=== PATIENT | male | born 1950 | race Caucasian/White ===

== ENCOUNTER 2023-10-20 14:42 | Day surgery (SDC) | payer MEDICARE, OTHER ==
[~2023-10-20 14:42] MED LIST: SODIUM CHLORIDE 0.9% 1,000 ML IV SCH
[2023-10-20] MEDS: IV FLUID CONTINUATION 1,000 ML IV ONE (15:27)
[2023-10-20 15:43] VITALS: BP 155/110; PULSE 68; RESP 16; TEMP 97.1
[2023-10-20 15:50] LABS: Glucose,Whole Blood 107 mg/dL (70-110)
[2023-10-20] MEDS: IOPAMIDOL-370 100ML BTL INJ ONE (18:20)
--- NOTE | 2023-10-20 18:21 | P.EPPROC ---
- EP Procedure Note Electrophysiology Procedure Note: Diagnosis Dual-chamber ICD generator at [facility], [facility]/[employer]. In 2014 I had implanted a new atrial lead History of coronary disease status post coronary artery bypass grafting Ischemic cardiomyopathy Congestive heart failure class II History of sustained ventricular tachycardia, currently on sotalol Chronic LV systolic dysfunction with 100% RV pacing Procedure Cinefluoroscopy of the leads reveals a single coil ICD lead implanted in the RV apex An abandoned atrial lead and implantation of his second atrial lead in the right atrial appendage Atrial pacing threshold 0.8 V at 0.5 ms, P waves 2.4 mV and pacing impedance 480 ohms RV pacing threshold 1 V at 0.5 ms, R waves 12 mV impedance impedance 400 ohms High-voltage impedance 70 ohms Left upper extremity venogram reveals patent left axillary and subclavian venous system Less than 15 mL IV dye injected in the left arm Plan Schedule upgrade to a biventricular ICD for management of severe cardiomyopathy, class II CHF and 100% RV pacing/pacemaker dependency
== END 2023-10-20 18:46 | disposition home or self-care (01) ==
LOC: CATHEP 14:42
PROVIDERS: ATTEND Internal Medicine Clinical Cardiac Electrophysiology
DX: Z45.02 Encounter for adjustment and management of automatic implantable cardiac defibrillator (principal); I87.1 Compression of vein; I50.22 Chronic systolic (congestive) heart failure; I25.5 Ischemic cardiomyopathy; I25.10 Atherosclerotic heart disease of native coronary artery without angina pectoris; Z95.1 Presence of aortocoronary bypass graft; Z87.891 Personal history of nicotine dependence; Z79.82 Long term (current) use of aspirin; Z79.84 Long term (current) use of oral hypoglycemic drugs; Z79.01 Long term (current) use of anticoagulants; Z79.899 Other long term (current) drug therapy
CPT/HCPCS: 33249; 36005; 75820; 76000; Q9967

== ENCOUNTER 2023-12-08 11:02 | Day surgery (SDC) | payer MEDICARE, OTHER ==
[2023-12-01 16:08] VITALS: BMI 26.4
[~2023-12-08 11:02] MED LIST changes: -SODIUM CHLORIDE 0.9% 1,000 ML IV SCH; +ceFAZolin 1 GM in SODIUM CHLORIDE 0.9% IRRIG BTL 250 ML IRRIGATION PRN
[2023-12-08 11:39] LABS: Glucose,Whole Blood 111 mg/dL (70-110)
[2023-12-08] MEDS: IV FLUID CONTINUATION 1,000 ML IV ONE (11:54)
[2023-12-08] MEDS: SODIUM CHLORIDE 0.9% 1,000 ML IV SCH ×2 (11:54→22:02)
[2023-12-08] MEDS ORDERED: diphenhydrAMINE 50 MG/ML 1 ML VIAL ONE (14:00)
[2023-12-08] MEDS ORDERED: PHENYLEPHRINE 10 MG/ML VIAL ONE (14:00)
[2023-12-08] MEDS ORDERED: LIDOCAINE 1% INJ 10MG/ML (20 ML MDV) ONE (14:00)
[2023-12-08] MEDS ORDERED: ePHEDrine 50 MG/ML 1 ML VIAL ONE (14:00)
[2023-12-08] MEDS ORDERED: MIDAZOLAM 2 MG/2 ML VIAL ONE (14:00)
[2023-12-08] MEDS ORDERED: WATER FOR INJECTION, STERILE 10 ML VIAL IV ONE (14:00)
[2023-12-08] MEDS ORDERED: GLYCOPYRROLATE 0.2 MG/ML 2 ML VIAL ONE (14:00)
[2023-12-08] MEDS ORDERED: KETAMINE HCL IN 0.9 % NACL 50 MG/5 ML SYRINGE ONE (14:00)
[2023-12-08] MEDS ORDERED: PROPOFOL 10 MG/ML 20 ML VIAL IV ONE (14:00)
[2023-12-08] MEDS ORDERED: ONDANSETRON 4 MG/2 ML VIAL ONE (14:00)
[2023-12-08] MEDS ORDERED: fentaNYL (PF) 50 MCG/ML 2 ML AMP ONE (14:00)
[2023-12-08] MEDS: VANCOMYCIN 1,000 MG in SODIUM CHLORIDE 0.9% 250 ML IVPB STA (14:30)
[2023-12-08] MEDS: ROPIVACAINE 5 MG/ML 30 ML VIAL MISCELLANE ONE (14:43)
[2023-12-08] MEDS: LIDOCAINE 1% INJ 10MG/ML (20 ML MDV) SQ ONE (14:43)
[2023-12-08] MEDS: IOPAMIDOL-370 100ML BTL INJ ONE ×2 (15:26)
[2023-12-08] MEDS ORDERED: ACETAMINOPHEN TAB 325 MG TAB PO PRN (17:22)
--- NOTE | 2023-12-08 17:22 | P.EPPROC ---
- EP Procedure Note Electrophysiology Procedure Note: Diagnosis Congestive heart failure with severe cardiomyopathy class II Dual-chamber ICD with 100 send RV pacing Admitted for upgrade to a biventricular ICD Final diagnosis Extremely tortuous lateral coronary vein with a hairpin bends Unable to cannulate in a stable manner to allow for passage of lead and wire/unable to place LV lead Attempt at left bundle pacing with good paced electrograms on the septum with the diagnostic catheter but the delivery sheaths were too short Patient's RA and RV are quite enlarged and the delivery sheath for the lead was not long enough to reach the septum Left bundle pacing lead could not be implanted successfully even though RV septal pacing revealed excellent site for implantation Details Patient is brought to the EP lab in a fasting state. Written informed consent was obtained prior to the procedure. IV antibiotics administered. The dual- chamber ICD was programmed to DOO mode since he has complete heart block An incision was made directly over the previous surgical site and carried down to level of the generator. The generator was explanted. Partial capsulectomy was performed. Venous access was obtained. There was difficulty passing the wires at the innominate SVC junction on account of tortuosity even though the vein is quite patent. This was performed successfully multiple times using the advantage wire as a guide First LV lead placement was attempted. The coronary sinus was accessed. Coronary sinus venogram revealed that the patient had a diminutive middle cardiac vein, posterior lateral vein and a large lateral vein However the large lateral vein had a hairpin band. Even though this was cannulated briefly, stability could not be maintained and the lead could not be placed within this vein Left bundle pacing was then attempted The left bundle nondeflectable sheath was placed over the coronary sinus catheter. The coronary sinus catheter was placed in the RVOT and then brought down to the septum. Excellent PVCs with terminal notching and also W-shaped pattern was obtained. However the fixed sheath was not long enough to allow for delivery of the left bundle lead The deflectable sheath was also used which was 43 cm in length but this proved to be too short to reach the septum As a result despite accurate mapping for the site of entry of the left bundle lead, the sheath was not long enough to provide stability for implantation Left bundle lead was not implanted Both leads were removed sheaths were removed and oversewn to prevent backbleeding The pocket was again with antibiotic solution the old generator was explanted new biventricular ICD was implanted and the LV port was plugged for future implantation of an epicardial lead thoracoscopically Antibiotic pouch was placed The wound was closed in 3 layers and dressed per protocol transfer tech
[2023-12-08 17:52] LABS: Glucose,Whole Blood 99 mg/dL (70-110)
[2023-12-08] MEDS ORDERED: NITROGLYCERIN SL TABS 0.4 MG TAB SUBLINGUAL PRN (18:56)
[2023-12-08] MEDS: ACETAMINOPHEN IV (For NPO) 1,000 MG in EMPTY BAG 1 BAG IVPB ONE (20:27)
[2023-12-08] MEDS: METOPROLOL TARTRATE 50 MG TAB PO SCH (20:30)
[2023-12-08] MEDS: BETHANECHOL 10 MG TAB PO SCH (20:30)
[2023-12-08] MEDS: SOTALOL 120 MG TAB PO SCH (20:30)
[2023-12-08] MEDS: METOCLOPRAMIDE 10 MG TAB PO SCH (20:30)
[2023-12-08 21:14] VITALS: RESP 16
[2023-12-09] MEDS: PANTOPRAZOLE 40 MG TABLET PO SCH (06:06)
--- NOTE | 2023-12-09 07:22 | XR ---
EXAMINATION TYPE: XR chest 2V DATE OF EXAM: 12/09/2023 COMPARISON: 05/02/2014 INDICATION: Lead placement check. Pacemaker TECHNIQUE: Frontal and lateral views of the chest are obtained. FINDINGS: The heart size is normal. The pulmonary vasculature is normal. Mild platelike atelectasis at the right costophrenic angle.. Pacemaker overlies left chest, leads ar e typical in orientation. No pneumothorax is evident. Sternotomy wires are midline. IMPRESSION: 1. Right basilar platelike atelectasis. 2. Pacemaker leads and typical orientation. No pneumothorax evident [facility], , 12/09/2023 7:20 AM
[2023-12-09] MEDS: FUROSEMIDE 40 MG TAB PO STA (08:27)
[2023-12-09] MEDS: ASPIRIN 81 MG PO SCH (08:27)
[2023-12-09] MEDS: lisinopriL 5 MG TAB PO SCH (08:29)
[2023-12-09] MEDS: EZETIMIBE 10 MG TAB PO SCH (08:30)
[2023-12-09] MEDS: DAPAGLIFLOZIN PROPANEDIOL 5 MG TABLET PO SCH (08:30)
[2023-12-09] MEDS: SPIRONOLACTONE 25 MG TAB PO SCH (08:30)
[2023-12-09] MEDS: RIVAROXABAN 20 MG TAB PO SCH (08:30)
[2023-12-09] MEDS: ATORVASTATIN 20 MG TAB PO SCH (08:31)
[2023-12-09 08:47] VITALS: BP 100/55; TEMP 97.7
[2023-12-09] MEDS: FORMOTEROL FUMARATE 20 MCG/2 ML NEBU INHALATION SCH (08:49)
[2023-12-09 09:05] VITALS: PULSE 76
--- NOTE | 2023-12-09 10:12 | P.EPPROC ---
- EP Procedure Note Electrophysiology Procedure Note: Patient is doing well. No chest discomfort minimal discomfort in the ICD site Lungs are clear no rhonchi no crackles He does have a mild cough Heart sounds are normal Breath sounds are mostly clear He denies any shortness of breath or orthopnea Impression Ischemic cardiomyopathy congestive heart failure class II-III with 100% RV pacing Pacemaker dependent with a dual-chamber ICD which is at [facility] A biventricular ICD upgrade was performed The new generator biventricular ICD was implanted However both LV lead placement in the lateral vein was not successful on account of extreme tortuosity and hairpin bend While this vessel was briefly cannulated, stability was an issue. Multiple sheaths and telescoping sheaths were attempted Left bundle pacing was attempted but his right atrium was quite enlarged and even though the lead was positioned and an excellent location on the septum, no stability could be achieved since the sheath was short. Multiple sheaths were attempted Plan Discharge home today Incentive spirometry Continue current medications Will schedule an appointment with Dr. Zhou Haney for epicardial lead placement
[2023-12-10] MEDS ORDERED: FUROSEMIDE 20 MG TAB PO SCH (09:00)
== END 2023-12-09 11:14 | disposition home or self-care (01) ==
LOC: CATHEP 11:02 → 6NMEDSUR 17:00 → CATHEP 12-09 11:14
PROVIDERS: ATTEND Internal Medicine Clinical Cardiac Electrophysiology
DX: I50.9 Heart failure, unspecified
CPT/HCPCS: 33249; 71046; 93005; 94640

== ENCOUNTER → 2023-12-09 | Outpatient (CLI) | payer MEDICARE, OTHER ==
--- NOTE | 2024-01-04 07:41 | XR ---
EXAMINATION TYPE: XR thoracic spine 2V DATE OF EXAM: 12/09/2023 11:38 AM CLINICAL INDICATION: Male, 73 years old with history of M54.6 PAIN IN THORACIC SPINE; [facility] COMPARISON: None TECHNIQUE: XR thoracic spine 2V views of the spine in Frontal and lateral projections. FINDINGS: No evidence of acute fracture. There is scattered multilevel disk space narrowing without loss of ve rtebral body height. There is normal alignment of the thoracic vertebral bodies. Scattered osteophyte formation along the anterior and lateral aspects of the vertebral bodies. Neural foramen are patent given limitations of this exam. Spinal canal appears patent. Sternotomy wires are present with surgic al clips over the mediastinum. Cardiac conduction leads are present. IMPRESSION: 1. No acute osseous pathology. 2. Moderate multilevel degeneration changes of the spine. [facility], , 01/04/2024 7:38 AM
== END | disposition home or self-care (01) ==
LOC: RADXRMAIN 11:18
PROVIDERS: ATTEND Nurse Practitioner Family
DX: M47.814 Spondylosis without myelopathy or radiculopathy, thoracic region (principal)
CPT/HCPCS: 72070

== ENCOUNTER → 2024-01-20 | Outpatient (CLI) | payer MEDICARE, OTHER ==
--- NOTE | 2024-01-20 14:43 | XR ---
EXAMINATION TYPE: XR chest 2V DATE OF EXAM: 01/20/2024 COMPARISON: 12/09/2023 HISTORY: 73-year-old male Z01.818 PRE SURGICAL XRAY OF THE CHEST for pacemaker revision TECHNIQUE: Frontal and lateral views FINDINGS: Heart mildly enlarged. Mild hyperinflation. Left anterior chest wall ICD generator with right atrial and one right ventricular lead. Median sternotomy wires and post-CABG clips. No consolidation or pleu ral effusion. IMPRESSION: 1. Mild cardiomegaly and COPD. 2. Left anterior chest wall AICD generator. 2 right atrial and one right ventricular lead. [facility], , 01/20/2024 2:41 PM
[2024-01-20 15:13] LABS: Basophils # (A) 0.1 k/uL (0-0.2); Basophils % (A) 1 %; Eosinophils # (A) 0.1 k/uL (0-0.7); Eosinophils % (A) 2 %; HCT 43.2 % (39.0-53.0); Hypochromasia Moderate; Lymphocytes # (A) 2.1 k/uL (1.0-4.8); Lymphocytes % (A) 27 %; MCH 33.5 pg (25.0-35.0); MCHC 32.5 g/dL (31.0-37.0); MCV 103.2 fL (80.0-100.0); Macrocytosis Slight; Mean Platelet Volume 9.3; Monocytes # (A) 0.5 k/uL (0-1.0); Monocytes % (A) 7 %; Neutrophils # (A) 4.7 k/uL (1.3-7.7); Neutrophils % (A) 62 %; RBC 4.19 m/uL (4.30-5.90); RDW 13.1 % (11.5-15.5); WBC 7.7 k/uL (3.8-10.6)
[2024-01-20 15:17] LABS: INR 1.6 (<1.2); Partial Thromboplastin Time 36.4 sec (22.0-30.0); Prothrombin Time 16.1 sec (10.0-12.5)
[2024-01-20 15:23] LABS: Platelet Count 154 k/uL (150-450)
[2024-01-20 20:37] LABS: Appearance,Urine Clear (Clear); Bilirubin,Urine Negative (Negative); Blood,Urine Negative (Negative); Color,Urine Yellow (Yellow); Ketones,Urine Negative (Negative); Nitrite,Urine Negative (Negative); Specific Gravity,Urine 1.009 (1.001-1.030)
[2024-01-21 00:21] LABS: Blood Urea Nitrogen 9.3 mg/dL (9.0-27.0); Carbon Dioxide 19.1 mmol/L (21.6-31.8); Chloride 104 mmol/L (96-109); Glucose 89 mg/dL (70-110); Potassium 4.5 mmol/L (3.5-5.5); Sodium 137 mmol/L (135-145)
== END | disposition home or self-care (01) ==
LOC: LABPAT 13:26
PROVIDERS: ATTEND Thoracic Surgery (Cardiothoracic Vascular Surgery)
DX: Z01.818 Encounter for other preprocedural examination (principal); I51.7 Cardiomegaly; I50.22 Chronic systolic (congestive) heart failure; J44.9 Chronic obstructive pulmonary disease, unspecified; Z95.810 Presence of automatic (implantable) cardiac defibrillator
CPT/HCPCS: 36415; 71046; 80051; 81003; 82565; 82947; 84520; 85025; 85610; 85730; 86850; 86900; 86901; 87077; 87086; 87186; 93005

== ENCOUNTER 2024-01-28 05:34 | Inpatient (IN) | payer MEDICARE, OTHER ==
[2024-01-28] MEDS ORDERED: LIDOCAINE 1% (10MG/ML) FOR IV START INTRADERMA PRN (05:47)
[2024-01-28] MEDS: IV FLUID CONTINUATION 1,000 ML IV ONE ×4 (06:13→07:24)
[2024-01-28 06:44] LABS: Glucose,Whole Blood 111 mg/dL (70-110)
[2024-01-28] MEDS: ONDANSETRON 4 MG/2 ML VIAL IVP ONE (06:53)
[2024-01-28] MEDS: DEXAMETHASONE SOD PHOSPHATE 4 MG/ML 1 ML VIAL IV ONE (06:53)
[2024-01-28] MEDS: LACTATED RINGERS 1,000 ML IV SCH (06:54)
[2024-01-28] MEDS: MIDAZOLAM 2 MG/2 ML VIAL IV ONE (07:22)
[2024-01-28] MEDS ORDERED: LIDOCAINE 1% INJ 10MG/ML (20 ML MDV) ONE (07:35)
[2024-01-28] MEDS ORDERED: fentaNYL (PF) 50 MCG/ML 2 ML AMP ONE (07:35)
[2024-01-28] MEDS ORDERED: ROCURONIUM 10 MG/ML (5 ML VIAL) IV ONE (07:35)
[2024-01-28] MEDS ORDERED: PHENYLEPHRINE 10 MG/ML VIAL ONE (07:35)
[2024-01-28] MEDS ORDERED: GLYCOPYRROLATE 0.2 MG/ML 2 ML VIAL ONE (07:35)
[2024-01-28] MEDS ORDERED: PROPOFOL 10 MG/ML 20 ML VIAL IV ONE (07:35)
[2024-01-28] MEDS ORDERED: NEOSTIGMINE 1 MG/ML 10 ML VIAL ONE (07:35)
[2024-01-28] MEDS ORDERED: SUCCINYLCHOLINE CHLORIDE 200 MG/10 ML VIAL IV ONE (07:35)
[2024-01-28] MEDS ORDERED: MIDAZOLAM 2 MG/2 ML VIAL ONE (07:35)
[2024-01-28] MEDS: LACTATED RINGERS 1,000 ML IV ONE (09:03)
[2024-01-28] MEDS: HYDROmorphone 0.5 MG/0.5 ML SYRINGE IVP PRN (10:06)
--- NOTE | 2024-01-28 10:27 | XR ---
EXAMINATION TYPE: XR chest 1V portable DATE OF EXAM: 01/28/2024 10:22 AM COMPARISON: 01/20/2024 CLINICAL INDICATION: Male, 73 years old with history of post LV lead placement, TECHNIQUE: XR chest 1V portable view(s) obtained. FINDINGS: The heart size is mildly prominent. The pulmonary vasculature is normal. Lung mccarthy are clear. Sternotomy wires are in the midline. Pacemaker overlies left chest. Pacemaker lead is in place. No pneumothorax identified. IMPRESSION: 1. No acute pulmonary process. 2. Mild cardiomegaly. [facility], , 01/28/2024 10:24 AM
--- NOTE | 2024-01-28 10:42 | P.OP ---
Date of Procedure: 01/28/24 Preoperative Diagnosis: 73-year-old male with low ejection fraction and wide QRS has had attempts at left ventricular lead placement that failed recently with upgrade of his pacemaker to ICD. He was referred for left ventricular lead placement. Postoperative Diagnosis: Cardiomyopathy Procedure(s) Performed: Left thoracoscopic placement of epicardial bipolar left ventricular pacemaker lead with upgrade of ICD to BiV Implants: Bipolar epicardial pacemaker lead [employer] reference #[id number] serial #[id number] Anesthesia: GETA Surgeon: Zhou Haney Estimated Blood Loss (ml): 25 Pathology: none sent Condition: stable Disposition: PACU Indications for Procedure: 73-year-old male with cardiomyopathy and widened QRS failed percutaneous left ventricular lead placement and therefore sent for epicardial LV lead placement Operative Findings: Intrapleural adhesions were minimal. Intrapericardial adhesions were significant. LV lead sensing was 5.2 mV impedance was 680 ohms and threshold was 0.75 V at 0.5 ms. Description of Procedure: Patient was brought to the operating room and placed supine on the table. General anesthesia was induced. Double-lumen endotracheal tube was placed and positioned with fiberoptic bronchoscopy and secured. Patient was turned in the right lateral decubitus position. Defibrillatory pads were placed. The left chest was sterilely prepped and draped. Initial incision was made in the sixth interspace in the midaxillary line carried down through skin and subcutaneous tissue muscle layers to the pleura. The pleural space was opened and video thoracoscope inserted into the pleural space. The pleural space was free but lung compliance was poor. A second thoracoscopic port incision was performed at the eighth interspace in the posterior axillary line. Upon opening the space we inserted a ring forceps and used it to try to compress along and gain visualization of the posterior pericardium. Once we had successfully accomplished this, fat pad just posterior to the phrenic nerve was grasped and retracted superiorly. This exposed the pericardium with underlying myocardium evident. Scissors was used to sarah the pericardium and then careful blunt dissection of the intrapericardial adhesions was performed with the scissors and with the peanut. The incision was opened widely enough to allow access for the ventricular lead. [email or web address] bipolar epicardial lead was inserted through the eighth interspace incision and screwed in under direct visualization. Lead was then tested and noted to be functioning well. The tunneler was attached to the end of the lead and it was tunneled anteriorly to the sixth interspace and then through the intercostal space into the subcu space. Counterincision was made over this. The lead was then brought out from the chest under direct visualization leaving a good loop present. The lungs were reinflated under direct visualization. A pocket was created at the exit site and the subcutaneous tissue and the lead was secured to the pectoralis fashion with 2-0 silk suture ligature. The lead was then coiled in the subcutaneous pocket and it was closed temporarily with skin clips. The thoracoscopic incisions were closed with layers of Vicryl suture and skin glue. The patient was turned supine and the anterior chest and subclavian region were sterilely prepped and draped. The scar of the skin overlying the pacemaker pocket was excised and the pacemaker pocket was opened. ICD was removed from the pocket. There was some serous fluid present within the pocket. Skin clips were removed from the lead site and the lead was removed from that pocket. The tunneler was again attached to the lead and it was tunneled up into the pacemaker pocket. The plug at the LV port site on the ICD was unscrewed and removed and the new LV lead was inserted here. Was screwed down and tested. Testing revealed excellent function of all of the leads. The device was placed in a antibiotic bag and then inserted back into the pocket. The pocket was closed with layers of Vicryl suture. Skin the lead pocket site was also closed with layers of Vicryl suture. Skin glue was applied and the patient was transferred to recovery in stable condition.
[2024-01-28] MEDS: METOCLOPRAMIDE 5 MG/ML 2 ML VIAL IVP PRN (10:52)
[2024-01-28] MEDS ORDERED: ALBUTEROL NEBULIZED 2.5 MG/3 ML INHALATION PRN (13:06)
[2024-01-28] MEDS ORDERED: NITROGLYCERIN SL TABS 0.4 MG TAB SUBLINGUAL PRN (13:06)
[2024-01-28] MEDS ORDERED: traMADol 50 MG TAB PO PRN (13:06)
[2024-01-28] MEDS ORDERED: ONDANSETRON 4 MG/2 ML VIAL IVP PRN (13:06)
[2024-01-28] MEDS: lisinopriL 5 MG TAB PO SCH (14:36)
[2024-01-28] MEDS: ATORVASTATIN 20 MG TAB PO SCH (14:36)
[2024-01-28] MEDS: KETOROLAC 15 MG/ML 1 ML VIAL IVP PRN (14:36)
[2024-01-28] MEDS: EZETIMIBE 10 MG TAB PO SCH (14:36)
[2024-01-28] MEDS: DEXTROSE 5%-0.45% NACL 1,000 ML IV SCH (14:37)
[2024-01-28] MEDS: IPRATROPIUM 0.5 MG/2.5 ML NEBU INHALATION SCH (15:12)
[2024-01-28] MEDS: NON FORMULARY DRUG (Ezetimibe/Simvastatin [Vytorin 10-40 Mg Tablet] 1 EACH Tablet) PO SCH (15:37)
[2024-01-28] MEDS: HEPARIN SODIUM,PORCINE 5,000 UNIT/ML 1 ML VIAL SQ SCH (16:48)
[2024-01-28] MEDS: BETHANECHOL 10 MG TAB PO SCH (17:24)
[2024-01-28] MEDS: SYMBICORT 160-4.5 MCG INHALER INHALATION SCH (20:06)
[2024-01-28] MEDS: SENNOSIDES-DOCUSATE SODIUM 1 EACH TAB PO SCH (21:08)
[2024-01-28] MEDS: METOPROLOL TARTRATE 50 MG TAB PO SCH (21:08)
[2024-01-28] MEDS: SOTALOL 120 MG TAB PO SCH (21:08)
[2024-01-29 07:39] VITALS: RESP 14
--- NOTE | 2024-01-29 07:51 | XR ---
EXAMINATION TYPE: XR chest 2V DATE OF EXAM: 01/29/2024 6:22 AM COMPARISON: 01/28/2024 CLINICAL INDICATION: Male, 73 years old with history of post LV lead placement, TECHNIQUE: XR chest 2V view(s) obtained. FINDINGS: The heart size is normal. The pulmonary vasculature is normal. There are some increased lung markings at the lung bases likely atelectasis greater on the left.. El ectronic device leads are unchanged in position from previous exam. IMPRESSION: 1. Left lower lobe atelectasis. Developing pneumonia could be considered. Follow-up recommended [facility], , 01/29/2024 7:48 AM
[2024-01-29] MEDS: RIVAROXABAN 20 MG TAB PO SCH (07:55)
[2024-01-29] MEDS: PANTOPRAZOLE 40 MG TABLET PO SCH (07:55)
[2024-01-29] MEDS: ASPIRIN 81 MG PO SCH (07:56)
[2024-01-29] MEDS: FUROSEMIDE 20 MG TAB PO SCH (07:56)
[2024-01-29] MEDS: DAPAGLIFLOZIN PROPANEDIOL 5 MG TABLET PO SCH (07:56)
[2024-01-29 08:42] LABS: African American GFR (CKD) >90 (>60 ml/min/1.73 sqM); Anion Gap 5 mmol/L; Blood Urea Nitrogen 12 mg/dL (9-20); Calcium 8.7 mg/dL (8.4-10.2); Carbon Dioxide 25 mmol/L (22-30); Chloride 104 mmol/L (98-107); Glucose 110 mg/dL (74-99); Non-African American GFR(CKD) 86 (>60 ml/min/1.73 sqM); Potassium 4.1 mmol/L (3.5-5.1); Sodium 134 mmol/L (137-145)
[2024-01-29 08:52] LABS: Basophils % (A) 0 %; Eosinophils % (A) 0 %; HCT 41.3 % (39.0-53.0); HGB 13.3 gm/dL (13.0-17.5); Lymphocytes # (A) 1.4 k/uL (1.0-4.8); Lymphocytes % (A) 14 %; MCH 32.3 pg (25.0-35.0); MCHC 32.2 g/dL (31.0-37.0); MCV 100.3 fL (80.0-100.0); Macrocytosis Slight; Monocytes # (A) 0.6 k/uL (0-1.0); Monocytes % (A) 6 %; Neutrophils # (A) 7.7 k/uL (1.3-7.7); Neutrophils % (A) 78 %; Platelet Count 151 k/uL (150-450); RBC 4.12 m/uL (4.30-5.90); RDW 13.4 % (11.5-15.5); WBC 9.9 k/uL (3.8-10.6)
[2024-01-29] MEDS ORDERED: NON FORMULARY DRUG (Budesonide/Glycopyr/Formoterol [Breztri Aerosphere Inhaler] 10.7 GM Gm INHALATION SCH (10:00)
[2024-01-29 11:13] VITALS: BP 107/65; TEMP 98.3
[2024-01-29] MEDS: SPIRONOLACTONE 25 MG TAB PO SCH (11:14)
[2024-01-29 11:46] VITALS: PULSE 76
--- NOTE | 2024-01-29 15:07 | P.DS ---
Providers Date of admission: 01/28/24 05:34 Expected date of discharge: 01/29/24 Attending physician: Zhou Haney Primary care physician: Katerin Espinoza Hospital Course: FINAL DIAGNOSIS: Ischemic cardiomyopathy with an ejection fraction of 35%, status post left thoracoscopic placement of epicardial bipolar left ventricular pacemaker lead with upgrade of ICD BiV Coronary artery disease with history of coronary artery bypass grafting surgery Mild to moderate mitral valve regurgitation Moderate tricuspid valve regurgitation Pulmonary hypertension with an RVSP of 46 mmHg COPD Hypertension Dyslipidemia Remote history of nicotine dependence Paroxysmal atrial fibrillation on Xarelto for anticoagulation PRINCIPAL PROCEDURE: 1. Left thoracoscopic placement of epicardial bipolar left ventricular pacemaker lead with upgrade of ICD to BiV HISTORY OF PRESENT ILLNESS: This is a 73-year-old gentleman who follows on an outpatient basis with Dr. Katerin Espinoza for his primary care, and with Dr. Zimmerman for his cardiology care. The patient has a history of left ventricular dysfunction with an ejection fraction of 35%. He also has mild to moderate mitral valve regurgitation, moderate tricuspid valve regurgitation and some degree of pulmonary hypertension with an RVSP of 46 mmHg. The patient has a history of a right ventricular ICD in place, and was referred to Dr. Porter for replacement due to end-of-life ICD. Dr. Porter attempted to perform replacement of the end-of-life ICD with an attempt to upgrade the device to a BiV, unfortunately he was unable to place the LV lead through the coronary sinus and also unable to get his bundle lead in place and this resulted in failure of the upgrade to the BiV. Subsequently the patient was referred to Dr. Zhou Haney from cardiothoracic surgery for further evaluation and treatment recommendations for consideration for thoracoscopically placed epicardial LV lead. Treatment options were discussed with the patient by Dr. Haney, risks and benefits of thoracoscopically placed epicardial lead were discussed, and knowing and understanding the risks the patient wished to proceed with the surgical option. HOSPITAL COURSE: The patient was brought to the hospital on January 28, 2024, and after obtaining consent was taken to the preoperative area, prepared in the usual fashion and subsequently taken to the operating room where Dr. Zhou Haney performed a left thoracoscopic placement of epicardial bipolar left ventricular pacemaker lead with upgrade of ICD to BiV. Upon completion of the surgery the patient was transferred to the recovery room for further recovering and hemodynamic monitoring and was subsequently transferred to the third floor cardiac stepdown unit for further monitoring. His oxygen was titrated down, his pain was controlled and he was ready to be discharged home on postoperative day #1. He received written and verbal instructions regarding his medications, activity restrictions, signs and symptoms requiring physician notification, and follow-up appointments. Plan - Discharge Summary Discharge Rx Participant: No New Discharge Prescriptions: New Sennosides-Docusate Sodium [Senokot-S] 2 each PO HS PRN tab PRN Reason: Constipation Continue lisinopriL [Zestril] 5 mg PO 1200 Ezetimibe/Simvastatin [Vytorin 10-40 mg Tablet] 1 each PO 1200 Metoprolol Tartrate [Lopressor] 50 mg PO BID Sotalol [Betapace] 120 mg PO BID Aspirin 81 mg PO DAILY Spironolactone [Aldactone] 25 mg PO 1200 Furosemide [Lasix] 20 mg PO QAM Omeprazole [PriLOSEC] 20 mg PO QAM Rivaroxaban [Xarelto] 20 mg PO DAILY Albuterol Inhaler [Ventolin Hfa Inhaler] 1 - 2 puff INHALATION Q6H PRN PRN Reason: Shortness Of Breath Empagliflozin [Jardiance] 10 mg PO QAM Nitroglycerin Sl Tabs [Nitrostat] 0.4 mg SUBLINGUAL Q5M PRN PRN Reason: Chest Pain Bethanechol [Urecholine] 10 mg PO TID Budesonide/Glycopyr/Formoterol [Breztri Aerosphere Inhaler] 1 puff INHALATION 1000 Discharge Medication List Aspirin 81 mg PO DAILY 04/28/14 [History] Ezetimibe/Simvastatin [Vytorin 10-40 mg Tablet] 1 each PO 1200 04/28/14 [History] Furosemide [Lasix] 20 mg PO QAM 04/28/14 [History] Metoprolol Tartrate [Lopressor] 50 mg PO BID 04/28/14 [History] Sotalol [Betapace] 120 mg PO BID 04/28/14 [History] Spironolactone [Aldactone] 25 mg PO 1200 04/28/14 [History] lisinopriL [Zestril] 5 mg PO 1200 04/28/14 [History] Omeprazole [PriLOSEC] 20 mg PO QAM 05/01/14 [History] Albuterol Inhaler [Ventolin Hfa Inhaler] 1 - 2 puff INHALATION Q6H PRN 10/19/23 [History] Empagliflozin [Jardiance] 10 mg PO QAM 10/19/23 [History] Nitroglycerin Sl Tabs [Nitrostat] 0.4 mg SUBLINGUAL Q5M PRN 10/19/23 [History] Rivaroxaban [Xarelto] 20 mg PO DAILY 10/19/23 [History] Bethanechol [Urecholine] 10 mg PO TID 12/01/23 [History] Budesonide/Glycopyr/Formoterol [Breztri Aerosphere Inhaler] 1 puff INHALATION 1000 01/25/24 [History] Sennosides-Docusate Sodium [Senokot-S] 2 each PO HS PRN tab 01/28/24 [Rx] Follow up Appointment(s)/Referral(s): Scott Porter MD [STAFF PHYSICIAN] - As Needed (Follow-up as planned with Dr. Porter) Zhou Haney MD [STAFF PHYSICIAN] - 02/11/24 2:00 pm Katerin Espinoza DO [Primary Care Provider] - As Needed Activity/Diet/Wound Care/Special Instructions: DISCHARGE INSTRUCTIONS: 1. No driving for 1 week, or until physician gives their ok. 2. No lifting, pushing, or pulling more than 10 pounds for 1 weeks. The physician will advise of any restriction changes. 3. Avoid raising the left arm above the shoulder level. 4 week restriction 4. Avoid arm movements, like backscratching, rubbing the head, or pulling on a cord. 4 weeks restriction 5. Gentle range of motion movements of the shoulder, closest to the incision should be performed to avoid a frozen shoulder. (Pendulum exercises of the shoulder) 6. Avoid activities such as golfing, swimming, weed whacking, lifting more than 10 pounds weight, bowling, gymnastics and weight training/lifting. (6 weeks restriction) 7. Activities such as wood chopping with an axe, pull-ups in the gymnasium, power lifting, arc-welding, being close to home induction cooktops will always be a problem. 8. Continue pain control per as needed orders 9. Continue with incentive spirometry and splinting until otherwise directed by the physician. 10. Routine incision care. No powders, lotions, ointments on incisions. 11. Please call surgeon/[employer] for temp greater than 101 F or purulent drainage from incisions. Discharge Disposition: HOME SELF-CARE
== END 2024-01-29 15:38 | disposition home or self-care (01) | DRG 277 ==
LOC: 2ORMAIN 05:34 → 3SCARD 12:06
PROVIDERS: ADMIT Thoracic Surgery (Cardiothoracic Vascular Surgery); ATTEND Thoracic Surgery (Cardiothoracic Vascular Surgery)
PROC: 0JH609Z Insertion of Cardiac Resynchronization Defibrillator Pulse Generator into Chest Subcutaneous Tissue and Fascia, Open Approach (ICD-10-PCS; 2024-01-28)
PROC: 02H Heart and Great Vessels, Insertion (ICD-10-PCS; 2024-01-28)
PROC: 02PA3MZ Removal of Cardiac Lead from Heart, Percutaneous Approach (ICD-10-PCS; 2024-01-28)
PROC: 0JPT0PZ Removal of Cardiac Rhythm Related Device from Trunk Subcutaneous Tissue and Fascia, Open Approach (ICD-10-PCS; principal; 2024-01-28 07:30)
DX: I11.0 Hypertensive heart disease with heart failure (principal); I50.22 Chronic systolic (congestive) heart failure; I42.9 Cardiomyopathy, unspecified; E78.5 Hyperlipidemia, unspecified; I08.1 Rheumatic disorders of both mitral and tricuspid valves; I25.10 Atherosclerotic heart disease of native coronary artery without angina pectoris; I25.5 Ischemic cardiomyopathy; I27.20 Pulmonary hypertension, unspecified; I48.0 Paroxysmal atrial fibrillation; J44.9 Chronic obstructive pulmonary disease, unspecified; Z79.01 Long term (current) use of anticoagulants; Z87.891 Personal history of nicotine dependence; Z95.1 Presence of aortocoronary bypass graft; Z95.810 Presence of automatic (implantable) cardiac defibrillator
CPT/HCPCS: 71045; 71046; 80048; 85025; 94640; 94760